=== PATIENT | male | born 1985 | race Two or more races ===

== ENCOUNTER 2021-05-23 17:42 | Emergency (ER) | payer OTHER ==
[~2021-05-23] VITALS: Ht 167.6 cm; Wt 91.0 kg
[2021-05-23 18:45] VITALS: BP 136/84
--- NOTE | 2021-05-23 20:21 | PHYS DOC ---
Past Medical History Past Surgical History: Other Additional Past Surgical Histo: RIGHT LEG PLATE AND SCREWS Smoking Status: Current Some Day Smoker Alcohol Use: Occasionally General Adult EDM: Chief Complaint: LOWER EXT PAIN HPI: HPI: Patient is a 35-year-old male that presents today with right leg pain. Patient states that he was sitting on the floor 3 days ago with a small child playing he said he raised up onto his knees and put full weight on his right leg when he was standing and he said then he felt a sudden amount of pain in that right leg. Patient does have a history of surgery due to trauma in that leg 6 years ago, patient states that his surgery was done at [facility]. Patient denies any direct trauma, patient denies fever chills. Review of Systems: Review of Systems: Constitutional: Denies fever or chills. [] Eyes: Denies change in visual acuity. [] HENT: Denies nasal congestion or sore throat. [] Respiratory: Denies cough or shortness of breath. [] Cardiovascular: Denies chest pain or edema. [] GI: Denies abdominal pain, nausea, vomiting, bloody stools or diarrhea. [] : Denies dysuria. [] Musculoskeletal: Right leg pain denies back pain or joint pain. [] Integument: Denies rash. [] Neurologic: Denies headache, focal weakness or sensory changes. [] Endocrine: Denies polyuria or polydipsia. [] Lymphatic: Denies swollen glands. [] Psychiatric: Denies depression or anxiety. [] Heart Score: C/O Chest Pain: No Risk Factors: Risk Factors: DM, Current or recent (<one month) smoker, HTN, HLP, family history of CAD, obesity. Risk Scores: Score 0 - 3: 2.5% MACE over next 6 weeks - Discharge Home Score 4 - 6: 20.3% MACE over next 6 weeks - Admit for Clinical Observation Score 7 - 10: 72.7% MACE over next 6 weeks - Early Invasive Strategies Physical Exam: PE: Constitutional: Well developed, well nourished, no acute distress, non-toxic appearance. [] HENT: Normocephalic, atraumatic, bilateral external ears normal, oropharynx moist, no oral exudates, nose normal. [] Eyes: PERRLA, EOMI, conjunctiva normal, no discharge. [] Neck: Normal range of motion, no tenderness, supple, no stridor. [] Cardiovascular:Heart rate regular rhythm, no murmur [] Lungs & Thorax: Bilateral breath sounds clear to auscultation [] Abdomen: Bowel sounds normal, soft, no tenderness, no masses, no pulsatile masses. [] Skin: Warm, dry, no erythema, no rash. [] Back: No tenderness, no CVA tenderness. [] Extremities: Right leg swelling and tenderness is noted along the distal aspect of the femur, a well-healed scar is noted on the lateral aspect of the femur extending into the right knee, right knee is stable, right dorsalis pedis pulses 2+, sensory is intact distal to the injury, range of motion is limited due to pain. No lacerations, no abrasions, no contusions, no ecchymosis is noted no tenderness, Neurologic: Alert and oriented X 3, normal motor function, normal sensory function, no focal deficits noted. [] Psychologic: Affect normal, judgement normal, mood normal. [] Current Patient Data: Vital Signs: Vital Signs Date Time Temp Pulse Resp B/P (MAP) Pulse Ox O2 Delivery O2 Flow Rate FiO2 05/23/21 18:45 98.0 89 18 136/84 (101) 94 Room Air 98.0 EKG: EKG: [] Radiology/Procedures: Radiology/Procedures: PROCEDURE: KNEE RIGHT 4V EXAMINATION: XR FEMUR_RIGHT, XR KNEE 4 VIEWS WITH PATELLA_RT CLINICAL HISTORY: Right knee pain. History of ORIF. TECHNIQUE: XR FEMUR_RIGHT, XR KNEE 4 VIEWS WITH PATELLA_RT COMPARISON: None FINDINGS/ IMPRESSION: Intact lateral plate and screw fixation hardware along the mid to distal femur w ith no evidence of hardware complication. No acute fracture. Joint space narrowing in the medial and lateral compartments of the knee, incompletely evaluated. No joint effusion. Electronically signed by: Michele Lindo DO (05/23/2021 8:46 PM) [facility] [place] Course & Med Decision Making: Course & Med Decision Making Pertinent Labs and Imaging studies reviewed. (See chart for details) 2044 reviewed radiological results with patient and family at the bedside, patient was informed there is no obvious acute processes at this time, but did advise patient to follow-up with the surgeon that did the original ORIF of the distal femur for further evaluation. Patient will be placed in a knee immobilizer and be given crutches and told to weight-bear as tolerated. 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 Patient and family member verbalized understanding this and agreeable to the plan of care. Dragon Disclaimer: Dragon Disclaimer: This electronic medical record was generated, in whole or in part, using a voice recognition dictation system. Departure Departure Impression: Primary Impression: Right knee pain Qualified Codes: M25.561 - Pain in right knee Disposition: HOME / SELF CARE / HOMELESS Condition: STABLE Referrals: BRADLEY MIKE II, MD Patient Instructions: Crutch Use, Knee Immobilization, Knee Pain Additional Instructions: Wear knee immobilizer until followed up by the orthopedic doctor for further evaluation of your right knee pain Weight-bear as tolerated use crutches to help with ambulation Ice 20 minutes on 3-4 times daily as needed for swelling and pain Tylenol and/or ibuprofen as needed for pain Follow-up with your primary care physician, the orthopedic doctor at [facility], or the orthopedic doctor listed on the referral section here of your discharge instructions for further management of your right knee pain. STEPHANIA FRANCIS APRN May 23, 2021 20:20
--- NOTE | 2021-05-23 20:48 | RAD ---
EXAMINATION: XR FEMUR_RIGHT, XR KNEE 4 VIEWS WITH PATELLA_RT CLINICAL HISTORY: Right knee pain. History of ORIF. TECHNIQUE: XR FEMUR_RIGHT, XR KNEE 4 VIEWS WITH PATELLA_RT COMPARISON: None FINDINGS/ IMPRESSION: Intact lateral plate and screw fixation hardware along the mid to distal femur with no evidence of nelson rdware complication. No acute fracture. Joint space narrowing in the medial and lateral compartments of the knee, incompletely evaluated. No joint effusion. Electronically signed by: Michele Lindo DO (05/23/2021 8:46 PM) [facility]
== END 2021-05-23 21:11 | disposition home or self-care (01) ==
LOC: ER 17:42
DX: M25.561 Pain in right knee (principal); F17.200 Nicotine dependence, unspecified, uncomplicated
CPT/HCPCS: 29505; 73552; 73564; 99284